=== PATIENT | female | born 1965 | race Caucasian/White ===

== ENCOUNTER 2017-01-04 07:57 | Emergency (ER) | payer OTHER ==
[2017-01-04] MEDS ORDERED: DIPH,PERTUSS(ACELL),TET VAC/PF 0.5 ML VIAL IM ONE (08:22)
--- NOTE | 2017-01-04 08:43 | ER NURSING DOCUMENTATION ---
Nurse's Notes [facility] Name:Serenity Nunes Age:51 yrs Sex:Female :1965 Arrival Date:01/04/2017 Time:07:57 Bed1 Private MD: Diagnosis:Finger Laceration-: Steristriped Presentation: 01/04 08:07 Acuity: PIETER 4 st 08:07 Notified ED Physician of Dr. Meng notified. st 08:17 Presenting complaint: Patient states: pt was holding a glass when it broke cutting the st fourth finger on her right hand. Transition of care: Home. Complicating Factors: There are no complicating factors for this patient. 08:17 Method Of Arrival: Private Vehicle st Triage Assessment: 08:18 General: Appears in no apparent distress, Behavior is cooperative. Pain: Complains of st pain in palmar aspect of middle phalanx of right ring finger Pain currently is 1 out of 10 on a pain scale. Pain began last night at 9 PM. Cardiovascular: No deficits noted. Respiratory: No deficits noted. GI: No deficits noted. Injury Description: Laceration sustained to palmar aspect of middle phalanx of right ring finger is 0.5 to 2.5 cm long, bleeding controlled. wound was cleaned last night and steri striped. wound edges are aproximated. Historical: - Allergies: No known drug Allergies; - Home Meds: 1. None - PMHx: None; - PSHx: ; - Tetanus: > 10 years. - Ebola Screening: : Patient denies exposure to infectious person. Patient denies travel to an Ebola-affected area in the 21 days before illness onset. . - Social history: Smoking status: Patient states was never smoker of tobacco. Patient uses alcohol occasionally. Patient/guardian denies using marijuana. Screenin:20 Infectious Disease Risk None. Abuse screen: Denies threats or abuse. Denies injuries st from another. pt feels safe at home. Nutritional screening: No deficits noted. Vital Signs: 08:20 BP 126 / 76; Pulse 79; Pulse Ox 97% on R/A; Pain 1/10; st ED Course: 08:00 Patient arrived in ED. ama 08:07 Kirstin Ingram, RN is Primary Nurse. st 08:[address] 08:16 Wound care was one strip replaced one more added. st 08:20 Valuables Remains with patient. st 08:26 Wound care was dressed with Tube Gauze. st 08:37 Berlin Meng MD is Attending Physician. cd Administered Medications: 08:16 Drug: Tetanus-Diphtheria Toxoid Adult 0.5 ml; {Dental Laboratory Supervisor: [employer] Pasteur ([facility]). st Exp: 06/30/2018. Lot #: [id number]. } Route: IM; Site: left deltoid; 08:42 Follow up: Response: No adverse reaction st Outcome: 08:38 Discharge ordered by . cd 08:42 Discharged to home ambulatory. st 08:42 Condition: improved 08:42 Discharge instructions given to patient, Instructed on discharge instructions, follow up and referral plans. 08:42 Patient [address] the ED. st Signatures: Kirstin Ingram, RN RN Berlin Scanlon MD MD cd Averdick, Andrew, Reg Reg ama
--- NOTE | 2017-01-04 08:43 | ER PHYSICIAN DOCUMENTATION ---
Physician Documentation [facility] Name:Serenity Nunes Age:51 yrs Sex:Female :1965 Arrival Date:01/04/2017 Time:07:57 Bed1 Private MD: Berlin Brennan Disposition: 01/04/17 08:38 Discharged to Home/Self Care. Impression: Finger Laceration - : Steristriped. - Condition is Good. - Discharge Instructions: FINGER LACERATION - LACERATION, Hand. - Medical Reconciliation form form. - Follow up: Private Physician; When: 7 - 10 days; Reason: Worsening of condition. - Problem is new. - Symptoms are resolved. - Notes: Remember Year 2016...your last Tetanus booster. HPI: 01/04 08:30 This 51 yrs old Female presents to ER via Private Vehicle with complaints of cd Laceration - TO R FINGER. 08:30 The patient or guardian reports a laceration, clean, 1 cm(s). The complaints affect the cd right side which is dominant, palmar aspect of middle phalanx of right ring finger. Context: The problem was sustained at home, resulted from glass. Onset: The symptom(s)/episode began/occurred acutely, last night. Patient washed it thoroughly, steri striped it with her RN friend. Came i for a Tetanus Booster. Historical: - Allergies: No known drug Allergies; - Home Meds: 1. None - PMHx: None; - PSHx: ; - Tetanus: > 10 years. - Ebola Screening: : Patient denies exposure to infectious person. Patient denies travel to an Ebola-affected area in the 21 days before illness onset. . - Social history: Smoking status: Patient states was never smoker of tobacco. Patient uses alcohol occasionally. Patient/guardian denies using marijuana. ROS: 08:30 MS/extremity: Positive for laceration. cd 08:30 All other systems are negative. Exam: 08:30 Musculoskeletal/extremity: Extremities: all appear grossly normal, with no appreciated cd pain with palpation. 08:30 Skin: Appearance: normal except for affected area, injury, laceration(s). Vital Signs: 08:20 BP 126 / 76; Pulse 79; Pulse Ox 97% on R/A; Pain 1/10; st MDM: 08:35 Data reviewed: vital signs, nurses notes, Give tDAP shot, and as a result, I will cd discharge patient. Counseling: I had a detailed discussion with the patient and/or guardian regarding: the historical points, exam findings, and any diagnostic results supporting the discharge/admit diagnosis, the need for outpatient follow up, for a recheck, with the patient's primary care provider, to return to the emergency department if symptoms worsen or persist or if there are any questions or concerns that arise at home. 08:37 Patient medically screened. cd Dispensed Medications: 08:16 Drug: Tetanus-Diphtheria Toxoid Adult 0.5 ml; {Supervisor Travel Information Center: [employer]i Pasteur ([facility]). st Exp: 06/30/2018. Lot #: [id number]. } Route: IM; Site: left deltoid; 08:42 Follow up: Response: No adverse reaction st Signatures: Kirstin Ingram, RN RN Berlin Scanlon MD MD cd
== END 2017-01-04 08:43 | disposition home or self-care (01) ==
LOC: ER 07:57
DX: S61.214A Laceration without foreign body of right ring finger without damage to nail, initial encounter (principal); W25.XXXA Contact with sharp glass, initial encounter; Y92.019 Unspecified place in single-family (private) house as the place of occurrence of the external cause; Z23 Encounter for immunization
CPT/HCPCS: 90471; 99283